=== PATIENT | female | born 1980 | race Caucasian/White ===

== ENCOUNTER 2016-07-22 05:28 | Inpatient (IN) | payer MEDICAID ==
[2016-07-22] MEDS ORDERED: MINERAL OIL 25 ML BOT ONE (05:49)
[2016-07-22] MEDS ORDERED: OXYTOCIN 10 UNITS/ML VIAL ONE (05:49)
[2016-07-22] MEDS ORDERED: PUMP TUBING ONE (05:49)
[2016-07-22] MEDS ORDERED: LIDOCAINE 1% (PRES FREE) 30 ML VIAL ONE (05:49)
[2016-07-22] MEDS ORDERED: LIDOCAINE Viscous 2% 15 ML UDCUP ONE (05:49)
[2016-07-22] MEDS ORDERED: OXYTOCIN IN LR 500 ML IV ONE ×2 (05:50→06:16)
[2016-07-22] MEDS ORDERED: IV START KIT ONE (06:07)
[2016-07-22] MEDS ORDERED: SODIUM CHLORIDE 0.9% FLUSH 10 ML ONE ×2 (06:08)
[2016-07-22] MEDS ORDERED: LACTATED RINGERS 1,000 ML IV PRN ×2 (06:16→17:34)
[2016-07-22 06:27] LABS: HEMATOCRIT 40.5 % (37.0-47.0); HEMOGLOBIN 13.8 gm/l (12.0-16.0); MEAN CORPUSCULAR HGB CONC 34.1 g/dl (33.0-37.0); RED CELL DISTRIBUTION WIDTH 14.9 % (11.5-14.5)
[2016-07-22] MEDS: BUTORPHANOL TARTRATE 1 MG/ML VIAL IV PRN ×2 (07:33→10:08)
[2016-07-22] MEDS: LACTATED RINGERS 1,000 ML IV PRN ×3 (10:15→15:07)
[2016-07-22] MEDS ORDERED: LACTATED RINGERS 1,000 ML IV SCH ×2 (10:15→13:20)
[2016-07-22] MEDS: OXYTOCIN IN LR 500 ML IV PRN ×5 (10:18→14:03)
[2016-07-22] MEDS ORDERED: FENTANYL/ROPIVACAINE EPIDURAL 250 ML EP ONE (11:56)
[2016-07-22] MEDS ORDERED: EPIDURAL PUMP SET ONE (11:56)
--- NOTE | 2016-07-22 12:57 | PCMAN ---
OB Admission Note - History : 5 Term: 3 : 0 Abortions (S&E): 1 Livin EDC:: 08/11/16 Gestational Age (weeks): 37 Days (#/7): 1 Admit Cervical Dilation:: 5 Admit Cervical Effacement (%):: 80 Admit Station:: -3 Admit Presentaton:: vtx Membrane Status: Intact Labor Onset (Date): 07/22/16 Labor Onset (Time): 04:00 Heart Rate:: 140 Status:: Cat I Summary of Course:: 35 yo [id number] w AMA, A1GDM and cholestasis at 37w1d c/o UCs. Had been scheduled for IOL later this AM for cholestasis. PNC: Started PNC at 10wks. Dated by LMP c/w 12wk u/s. Normal anatomy scan at 25wks and normal growth scan at 33 wks. A1GDM well controlled. Had irreg heart beat, MFM eval, no arrrythmia at that time. AMA started NST/TAZ at that time, but also c/o severe itching on hands and feet, no rash. Bile acids elevated and started on Actigall w resolution of sx. OBHx: '96 at 40 wks '04 Sab at 8wks '05 at 40wks '08 at 39wks PMH: GERD Dysplasia of cx h/o +PPD, s/p INH x 6 mos PSH: none SocHx: No tob, etoh or drugs SFOB (last 2 kids) Social etoh, no tob/drugs IZ: Flu 03/10/16 TdaP 05/25/16 - Labs Blood Type: A (+) positive (ab neg) Hct/Hgb:: 11.2 Rubella Status: Immune GBS Status: Negative Abnormal Labs: Other (1 hr and 3 hr gtt elev. Bile acids 16) Other Labs:: HIV NR HBsAg NR Syphilis neg GC neg Chlam neg Quad neg Pap WNL, HPV neg 2012 - Review of Systems No change in vision, RUQ pain, PRINCE, itching, fever or chills. - Physical Exam General: Afebrile, Mild Distress Psych/Mental Status: Mood/Affect Appropriate, Judgment/Insight Intact Neurological: Grossly Intact, Alert, Normal Gait, Normal Speech HEENT: Atraumatic, Mucous membr. moist/pink Lungs: Clear to Auscultation Bilaterally Cardiovascular: Regular Rate and Rhythm Abdomen: Other (gravid) Genitourinary: Normal Female Genitalia Extremities: Full ROM, No Edema Skin: Normal Color, Warm, Dry - Problems (1) AMA (advanced maternal age) multigravida 35+ Status: Acute Code: O09.529 (2) GDM (gestational diabetes mellitus), class A1 Status: Acute Code: O24.410Assessment/Plan: Well controlled will check CBG in labor (3) Cholestasis during in third trimester Status: Acute Code: O26.613Assessment/Plan: Dx'd at 36 wks Was scheduled for IOL today, but arrived earlier in labor (4) Active labor at term Status: Acute Code: [id number]/Plan: 35 yo w A1GDM, AMA and cholestasis at 37w1d here in early active labor in AM prior to scheduled IOL for cholestasis Admit IV pain meds, considering epidural if Pitocin needed Consider augment w Pit if no cervical change Expt mgmt - Additional Comments 35 yo at 37w1d w AMA, A1GDM and cholestasis in active labor Admit IV pain meds, considering epidural if needs Pit expt mgmt baby will need serial BS
--- NOTE | 2016-07-22 12:59 | PDOC36 ---
Provider Note Subject: Add: Note: S: UCs painful. Stadol helped. Would like another dose if possible O: AVSS FHTs: 130s, min variability [place]: q3-6min SVE: /-3 A/P: 35 yo w A1GDM, cholestasis and AMA in early labor Augment w Pitocin Pt considering epidural for pain
[2016-07-22] MEDS ORDERED: NALBUPHINE HCL 20 MG/ML AMP IV PRN (13:20)
[2016-07-22] MEDS ORDERED: LACTATED RINGERS 500 ML IV PRN (13:20)
[2016-07-22] MEDS ORDERED: NALOXONE HCL 0.4 MG/ML VIAL IV PRN (13:20)
[2016-07-22] MEDS ORDERED: EPHEDRINE SULFATE 50 MG/ML 1ML VIAL IV PRN (13:20)
[2016-07-22] MEDS ORDERED: DIPHENHYDRAMINE HCL 50 MG/1 ML VIAL IV PRN (13:20)
[2016-07-22] MEDS ORDERED: ONDANSETRON 4 MG/2ML 2 ML VIAL IV PRN (13:20)
[2016-07-22] MEDS ORDERED: SODIUM CHLORIDE 0.9% 500 ML IV PRN (13:20)
[2016-07-22] MEDS ORDERED: METOCLOPRAMIDE HCL 5 MG/ML 2ML VIAL IV PRN (13:20)
[2016-07-22] MEDS ORDERED: EPIDURAL PROCEDURE TRAY ONE (13:26)
[2016-07-22] MEDS ORDERED: ROPIVACAINE 0.5% 30 ML VIAL ONE (13:26)
[2016-07-22] MEDS ORDERED: FENTANYL/ROPIVACAINE EPIDURAL 250 ML EP SCH (13:39)
[2016-07-22] MEDS ORDERED: MINERAL OIL 25 ML BOT TP ONE (15:51)
--- NOTE | 2016-07-22 16:52 | PCMDEL ---
Delivery Note - Labor 1st stage (hr/min):: 1hr 25min 2nd stage (hr/min):: 0hr 22min 3rd stage (hr/min):: 0hr 12min Total (hr/min):: 1hr 59 min Pushed (hr/min):: 0hr 22min - Delivery Delivery (Date): 07/22/16 Delivery (Time): 15:59 Gender: Male Presentation: Cephalic Position: OA Umbilical Cord: 3 Vessel Delayed Cord Clamping:: > 3 min 1 Minute Total: 7 5 Minute Total: 9 Placenta:: complete and intact EBL:: 760ml Perineum:: inspected and intact Suture:: n/a Anesthesia/Meds:: epidural Length ROM:: 0hr 22min Comments:: initially stunned male infant over intact perineum. Passed to mom's chest then dried and tactile stim w good cry and tone. Cord w strong pulsations and delayed clamping and cut, ~10min. 3V cord. Then active 3rd stage w IV Pitocin. Rapid placental delivery complete and intact, followed by gush of blood and large clots (measured 760ml). FF w massage. Perineum and vagina inspected and intact. Mom and baby bonding skin to skin.
[2016-07-22] MEDS ORDERED: LANOLIN 50 APPLIC/7G TUBE TP PRN (17:34)
[2016-07-22] MEDS ORDERED: CALCIUM CARBONATE 500 MG TAB.CHEW PO PRN (17:34)
[2016-07-22] MEDS ORDERED: HYDROCODONE/ACETAMINOPHEN 5/325MG TABLET PO PRN (17:34)
[2016-07-22] MEDS ORDERED: SENNOSIDES 8.6 MG TABLET PO PRN (17:34)
[2016-07-22] MEDS ORDERED: BENZOCAINE/MENTHOL 60 APPLIC/BOT TP PRN (17:34)
[2016-07-22] MEDS ORDERED: DOCUSATE SODIUM 100 MG CAPSULE PO PRN (17:34)
[2016-07-22] MEDS ORDERED: MAGNESIUM HYDROXIDE 30 ML UDCUP PO PRN (17:34)
[2016-07-22] MEDS: IBUPROFEN 800 MG TABLET PO PRN (18:00)
[2016-07-22] MEDS ORDERED: METHYLERGONOVINE MALEATE 0.2 MG/ML 1ML AMP IM ONE (18:52)
[2016-07-22 20:27] VITALS: BMI 27.2
[2016-07-23] MEDS: IBUPROFEN 800 MG TABLET PO PRN ×3 (00:39→16:28)
[2016-07-23] MEDS ORDERED: METHYLERGONOVINE MALEATE 0.2 MG TABLET PO SCH (01:00)
[2016-07-23 06:44] LABS: HEMATOCRIT 33.2 % (37.0-47.0)
--- NOTE | 2016-07-23 11:02 | PDOC44 ---
- Subjective Day: 1 Reports Pain Tolerable - Objective Temp Pulse Resp BP Pulse Ox 97.7 F 70 16 98/55 07/23/16 09:50 07/23/16 09:50 07/23/16 09:50 07/23/16 09:50 Lab Results 07/23/16 06:00 Hgb 11.0 L D Hct 33.2 L Current Medications Generic Name Dose Route Start Last Admin Trade Name Freq PRN Reason Stop Dose Admin Acetaminophen/Hydrocodone Bitart 1 - 2 tab 07/22/16 17:34 [place] 5/325 PO Q4H PRN Pain (Moderate) Benzocaine/Menthol 1 applic 07/22/16 17:34 Dermoplast TP PRN PRN Patient Comfort Calcium Carbonate/Glycine 500 - 1,000 mg 07/22/16 17:34 Tums PO BID PRN Indigestion Docusate Sodium 100 mg 07/22/16 17:34 07/23/16 09:57 Colace PO 100 mg DAILY PRN Administration Comfort Emollient Ointment 1 applic 07/22/16 17:34 [id number] TP PRN PRN sore nipples Lactated Ringer's 1,000 mls @ 100 mls/hr 07/22/16 17:34 Lactated Ringers IV .Q10H PRN Titrate per clinical situation Ibuprofen 800 mg 07/22/16 17:34 07/23/16 09:57 Motrin PO 800 mg Q6H PRN Administration Pain (Mild) Magnesium Hydroxide 30 ml 07/22/16 17:34 Milk Of Magnesia PO BEDTIME PRN Constipation Senna 17.2 mg 07/22/16 17:34 Senokot PO BEDTIME PRN Comfort Sodium Chloride 10 ml 07/22/16 17:34 Normal Saline 10ml Flush IV PRN PRN IV Flush Sodium Chloride 10 ml 07/23/16 01:00 07/23/16 07:17 Normal Saline 10ml Flush IV Not Given Q8HR PAOLA - Physical Exam General: Afebrile Psych/Mental Status: Mood/Affect Appropriate, Judgment/Insight Intact, Bonding Well Neurological: Oriented x 4 Lungs: Clear to Auscultation Bilaterally Cardiovascular: Regular Rate and Rhythm Fundus: Firm, Below Umbilicus Skin: Normal Color - Problems:Assessment/Plan (1) Vaginal delivery Status: AcuteAssessment/Plan: Doing well Normal exam Continue routine exam
[2016-07-24] MEDS: IBUPROFEN 800 MG TABLET PO PRN (00:19)
--- NOTE | 2016-07-24 10:33 | PDOC39B ---
Hospital Course: ADMIT DATE: 07/22/16 DISCHARGE DATE: 07/24/16 ADMISSION DIAGNOSES: Intrauterine at term, cholestasis, Advanced Maternal Age HISTORY OF PRESENT ILLNESS: 35 year old G5 T3 L3 at 37 weeks 1 days presented in active labor, she was admitted. HOSPITAL COURSE: The patient had normal vaginal delivery on 07/22/16. By day of discharge the patient is ambulating, eating, voiding, and passing flatus without difficulty. Pain is controlled and lochia is appropriate. She is and supplementing with expressed breast milk. - Physical Exam Vital Signs: Temp Pulse Resp BP Pulse Ox 97.2 F 67 16 106/59 07/24/16 07:45 07/24/16 07:45 07/24/16 07:45 07/24/16 07:45 General: Afebrile Psych/Mental Status: Mood/Affect Appropriate, Judgment/Insight Intact, Bonding Well Neurological: Grossly Intact, Alert HEENT: Atraumatic, EOMI Lungs: Clear to Auscultation Bilaterally, Normal Air Movement Cardiovascular: Regular Rate and Rhythm, Normal S1, Normal S2, No Murmur Breast: Soft, Skin intact Fundus: Firm, Midline, Below Umbilicus - Discharge Diagnosis (1) Vaginal delivery Status: AcuteAssessment/Plan: Doing well Normal exam Continue routine exam (2) AMA (advanced maternal age) multigravida 35+ Status: Acute (3) Cholestasis during in third trimester Status: Acute - Discharge Plan Condition: Stable Disposition: Home Instruction Forms: Vaginal Discharge Instructions Prescriptions: Docusate Sodium [COLACE 100 MG CAPSULE (SHF)] 100 mg PO DAILY PRN #60 capsule PRN Reason: Comfort Ibuprofen [IBUPROFEN 800 MG TABLET (SHF)] 800 mg PO Q8H PRN #100 tablet PRN Reason: Pain (Mild) Follow-Up: Alexandra Laws MD [Staff Physician] - In 6 weeks
[2016-07-24 14:11] VITALS: BP 135/74
== END 2016-07-24 15:08 | disposition home or self-care (01) | DRG 775 ==
LOC: EDSTATUS 05:28 → FBC 05:30
PROVIDERS: ADMIT Family Medicine; ATTEND Family Medicine
PROC: 10E0XZZ Delivery of Products of Conception, External Approach (ICD-10-PCS; principal; 2016-07-22)
PROC: 3E0P7GC Introduction of Other Therapeutic Substance into Female Reproductive, Via Natural or Artificial Opening (ICD-10-PCS; 2016-07-22)
DX: O26.62 Liver and biliary tract disorders in childbirth (principal); K83.1 Obstruction of bile duct; O09.523 Supervision of elderly multigravida, third trimester; O09.43 Supervision of pregnancy with grand multiparity, third trimester; Z3A.37 37 weeks gestation of pregnancy; O24.420 Gestational diabetes mellitus in childbirth, diet controlled; Z37.0 Single live birth

== ENCOUNTER 2016-07-27 14:02 | Outpatient (CLI) | payer SELFPAY | END 2016-07-27 14:03 | disposition home or self-care (01) | LOC: BABIESSH 14:02 | PROVIDERS: ATTEND Family Medicine | DX: Z39.1 Encounter for care and examination of lactating mother (principal) ==

== ENCOUNTER 2016-07-30 10:05 | Outpatient (CLI) | payer MEDICAID | END 2016-07-30 10:06 | disposition home or self-care (01) | LOC: BABIESSH 10:05 | PROVIDERS: ATTEND Family Medicine | DX: Z39.1 Encounter for care and examination of lactating mother (principal) ==